=== PATIENT | female | born 1965 ===

== ENCOUNTER 2018-10-18 10:55 | Outpatient (CLI) | payer OTHER | END 2018-10-18 11:07 | disposition home or self-care (01) | LOC: SONOGRAMA 10:55 | DX: E06.3 Autoimmune thyroiditis (principal); E04.0 Nontoxic diffuse goiter; E78.2 Mixed hyperlipidemia; R73.01 Impaired fasting glucose ==

== ENCOUNTER 2019-09-03 09:16 | Outpatient (CLI) | payer OTHER | END 2019-09-03 09:18 | disposition home or self-care (01) | LOC: RAD 09:16 | DX: R05 Cough (principal) ==

== ENCOUNTER 2020-04-05 08:50 | Outpatient (CLI) | payer OTHER | END 2020-04-05 09:13 | disposition home or self-care (01) | LOC: MAMO-SONO 08:50 | PROVIDERS: ATTEND Obstetrics & Gynecology | DX: R92.2 Inconclusive mammogram (principal); N64.59 Other signs and symptoms in breast; N60.12 Diffuse cystic mastopathy of left breast; N60.11 Diffuse cystic mastopathy of right breast ==